=== PATIENT | female | born 1980 | race American Indian/Alaskan Native ===

== ENCOUNTER 2020-07-02 05:50 | Day surgery (SDC) | payer BC ==
[~2020-07-02 05:50] MED LIST: ceFAZolin/STERILE WATER 2 GM/20 ML SYRINGE IV NR
[2020-07-02] MEDS ORDERED: LACTATED RINGERS 1,000 ML IV SCH (06:00)
[2020-07-02] MEDS ORDERED: MIDAZOLAM 2 MG/2 ML INJ IV NR (06:00)
[2020-07-02] MEDS ORDERED: BACTERIOSTATIC SODIUM CHLORIDE 0.9% 30 ML VIAL INFILTRATI ONE (06:33)
[2020-07-02] MEDS ORDERED: HYDROmorphone 1 MG/1 ML INJ IV PRN (07:12)
--- NOTE | 2020-07-02 07:12 | Anesthesia Day of Surgery ---
Anesthesia Day of Surgery - Day of Surgery Patient Examined: Yes Patient H&P Reviewed: Yes Patient is NPO: Yes
--- NOTE | 2020-07-02 07:12 | Anesthesia Consultation ---
Anesthesia Consult and Med Hx Date of service: 07/02/20 - Airway Anesthetic Teeth Evaluation: Good, Bridges (right upper) ROM Head & Neck: Adequate Mental/Hyoid Distance: Adequate Mallampati Class: Class I Intubation Access Assessment: Good - Pulmonary Exam CTA: Yes - Cardiac Exam Cardiac Exam: RRR - Pre-Operative Health Status ASA Pre-Surgery Classification: ASA2 Proposed Anesthetic Plan: General - Pulmonary Hx Smoking: No Hx Respiratory Symptoms: No - Cardiovascular System Hx Hypertension: No Hx Heart Attack/AMI: No Hx Percutaneous Transluminal Coronary Angioplasty (PTCA): No - Central Nervous System CVA: No Hx Psychiatric Problems: No - Gastrointestinal Hx Gastroesophageal Reflux Disease: Yes (well controlled) - Endocrine Hx Renal Disease: No Hx Liver Disease: No Hx Insulin Dependent Diabetes: No Hx Non-Insulin Dependent Diabetes: No Hx Hyperthyroidism: Yes (followed by PCP, no meds) - Other Systems Hx Substance Use: Yes (THC) Hx Obesity: No - Additional Comments Anesthesia Medical History Comments: No hx anesthetic complications.
[2020-07-02] MEDS ORDERED: LIDOCAINE MPF (2%) 20 MG/1 ML VIAL 5 ML ONE (07:18)
[2020-07-02] MEDS ORDERED: propofoL 200 MG/20 ML VIAL IV ONE (07:18)
[2020-07-02] MEDS ORDERED: ONDANSETRON 4 MG/2 ML INJ ONE (08:07)
[2020-07-02] MEDS ORDERED: dexAMETHasone 20 MG/5 ML VIAL ONE (08:07)
[2020-07-02] MEDS ORDERED: IOHEXOL 300 MG/ML 100ML IV ONE (08:15)
[2020-07-02] MEDS ORDERED: WATER FOR IRRIG STERILE 2000 ML IR ONE (08:15)
[2020-07-02] MEDS ORDERED: KETOROLAC 30 MG/1 ML INJ ONE (08:17)
--- NOTE | 2020-07-02 08:29 | Short Stay Summary ---
Short Stay Documentation Date of service: 07/02/20 - History H&P: obtained from office - Allergies and Medications Current Medications: Allergies latex Allergy (Verified 06/24/20 11:34) Hives Sulfa (Sulfonamide Antibiotics) Allergy (Verified 07/02/20 06:41) Rash Home Medications Medication Instructions Recorded Confirmed Last Taken Type Ergocalciferol [Vitamin D2] 1 cap PO QWEEK 06/24/20 07/02/20 06/25/20 History Rabeprazole Sodium [Aciphex] 20 mg PO DAILY 06/24/20 07/02/20 07/01/20 18:00 History Active Medications Cefazolin Sodium (Ancef/Sterile Water 2 Gm/20 Ml) 2 gm IV PREOP NR Stop: 07/02/20 23:59 Hydromorphone HCl (Dilaudid) 0.5 mg IV Q10MIN PRN PRN Reason: Pain , Severe (7-10) Stop: 07/02/20 23:00 Lactated Ringer's (Lactated Ringers) 1,000 mls @ 100 mls/hr IV DIRECT SD Stop: 07/02/20 23:59 Last Admin: 07/02/20 06:37 Dose: 100 mls/hr Documented by: Midazolam HCl (Versed) 2 mg IV PREOP NR Stop: 07/02/20 23:59 Last Admin: 07/02/20 07:12 Dose: 2 mg Documented by: - Brief post op/procedure progress note Date of procedure: 07/02/20 Pre-op diagnosis: left flank pain, recurrent uti Post-op diagnosis: same Procedure: cysto, rpg, hydrodistention (400cc) Anesthesia: GETA Surgeon: DREW ENGLISH Estimated blood loss: minimal Pathology: none Condition: stable - Hospital course Hospital course: macrobid & ultram on chart - Disposition Condition at discharge: Stable Disposition: DC-01 TO HOME OR SELFCARE Short Stay Discharge Plan Follow up with: BIANCA SINHA MD [Primary Care Provider] - 7 Days
--- NOTE | 2020-07-02 09:15 | Operative Report ---
PREOPERATIVE DIAGNOSES: Recurrent urinary tract infection, left flank pain. POSTOPERATIVE DIAGNOSES: Recurrent urinary tract infection, left flank pain. PROCEDURES: Cystoscopy, bilateral retrograde pyelograms, hydrodistention (bladder capacity 400 mL). SURGEON: Michael Moe MD. ANESTHESIA: General. ESTIMATED BLOOD LOSS: Minimal. FLUIDS: Crystalloid. COMPLICATIONS: No complications. INDICATIONS: This patient is a 39-year-old female seen in the office for recurrent UTI, flank pain. She has a history of hysterectomy and x2. She also has some urinary incontinence and is undergoing medical management. CT of abdomen and pelvis was unremarkable. She presents now for endoscopic evaluation. DESCRIPTION OF PROCEDURE: The patient was taken to the operative suite, placed in a supine position. After adequate general anesthesia, placed in a dorsal lithotomy position, prepped and draped in a sterile fashion. Pancystourethroscopy was performed with 22-Macedonian Storz cystoscope, no urethral abnormalities. Bladder, no tumors or stones were noted. Both ureteral orifices in normal position. Bilateral retrograde pyelograms were obtained with an 8-Macedonian Suma catheter and 8 mL of contrast. No filling defects or obstruction. Hydrodistention was performed. Bladder capacity of 400 mL, did have some diffuse edema and erythema throughout the bladder suggesting irritation. Her bladder was drained. She was extubated and taken to recovery room in stable condition. She will go home on Macrobid and Ultram. JOB# [id number] [facility]
[2020-07-02 09:30] VITALS: BP 139/88
--- NOTE | 2020-07-02 09:31 | Fluoroscopy Report ---
Fluoroscopically guided bilateral retrograde ureterograms INDICATION: Bilateral flank pain IMPRESSION: Injected contrast ascended both ureters with mild right hydronephrosis and minimal left h ydronephrosis Fluoroscopy time: 20 seconds. Fluoroscopic images: 8. Signer Name: Billy Oliva MD Signed: 07/02/2020 9:26 AM Workstation Name: [id number]
--- NOTE | 2020-07-02 10:16 | Post Anesthesia Evaluation ---
- Post Anesthesia Evaluation Patient Participated: Yes Airway Patent: Yes Stable Respiratory Function: Yes Nausea/Vomiting: No Temp > 96.8F: Yes Pain Manageable: Yes Adequeate Hydration: Yes Anesthesia Complications: No
== END 2020-07-02 05:51 | disposition home or self-care (01) ==
LOC: OR 05:50
PROVIDERS: ATTEND Urology
DX: N39.0 Urinary tract infection, site not specified (principal); K21.9 Gastro-esophageal reflux disease without esophagitis; E05.90 Thyrotoxicosis, unspecified without thyrotoxic crisis or storm; Z72.89 Other problems related to lifestyle; D64.9 Anemia, unspecified; Z80.3 Family history of malignant neoplasm of breast; Z90.49 Acquired absence of other specified parts of digestive tract; Z90.710 Acquired absence of both cervix and uterus; Z98.891 History of uterine scar from previous surgery; Z98.890 Other specified postprocedural states; Z91.040 Latex allergy status; Z88.2 Allergy status to sulfonamides; Z79.899 Other long term (current) drug therapy
CPT/HCPCS: 52005; 74420; A4217; J0690; J1100; J1170; J1885; J2250; J2405; J2704; J7120; Q9967